=== PATIENT | male | born 1935 | race Caucasian/White ===

== ENCOUNTER 2017-01-28 09:19 | Day surgery (SDC) | payer MEDICARE, OTHER ==
[2017-01-27 12:44] LABS: HEMATOCRIT 45.7 % (39.2-51.8); HEMOGLOBIN 15.3 g/dL (13.7-18.0); WHITE BLOOD COUNT 7.9 x10^3/uL (3.4-10)
[~2017-01-28] VITALS: Ht 188 cm; Wt 92.7 kg
[~2017-01-28 09:19] MED LIST: DOXA4TAB3 PO; FINA5TAB4 PO; IPRA15SP NS; METO50TA4 PO; SIMV20TA3 PO
[2017-01-28] MEDS ORDERED: SODIUM CHLORIDE 0.9% 1,000 ML IV SCH (10:09)
[2017-01-28 10:10] VITALS: BP 146/75
[2017-01-28] MEDS ORDERED: FENTANYL PF 100 MCG/2ML ONE (11:46)
[2017-01-28] MEDS ORDERED: MIDAZOLAM 1 MG/ML, 5ML ONE (11:47)
[2017-01-28] MEDS ORDERED: LIDOCAINE GEL 2%, 5ML ONE (12:00)
[2017-01-28] MEDS ORDERED: LIDOCAINE 2%, 20ML ONE (12:00)
[2017-01-28] MEDS ORDERED: LIDOCAINE 4% TOPICAL SOLUTION 50 ML ONE (12:00)
== END 2017-01-28 14:15 ==
LOC: OUT 09:19
PROVIDERS: ATTEND Internal Medicine Critical Care Medicine
DX: J42 Unspecified chronic bronchitis (principal); I10 Essential (primary) hypertension; E78.2 Mixed hyperlipidemia; F17.200 Nicotine dependence, unspecified, uncomplicated
CPT/HCPCS: 31622; 36415; 85025; 85610; 85730; 99152; 99153; J2250; J3010; J3490; J7030